=== PATIENT | male | born 1965 | race Hispanic/Latino ===

== ENCOUNTER 2024-07-20 22:22 | Emergency (ER) | payer SELFPAY ==
[2024-07-20] MEDS ORDERED: DIAZEPAM 10 MG/2 ML INJ SYRINGE ONE (23:20)
[2024-07-20] MEDS ORDERED: KETOROLAC 30 MG/ML INJ ONE (23:21)
[2024-07-20] MEDS ORDERED: ACETAMINOPHEN 325 MG TABLET ONE (23:21)
[2024-07-20] MEDS ORDERED: HYDROCODONE/APAP 7.5/325 MG TAB ONE (23:22)
--- NOTE | 2024-07-21 00:33 | ER ---
Nurse's Notes [facility] Name: Fredo Sylvester Age: 59 yrs Sex: Male : 1965 Arrival Date: 07/20/2024 Time: 22:22 Bed 13 Private MD: Diagnosis: Pain in left shoulder Presentation: 07/20 22:50 Chief complaint: Patient states: Patient presents in the ED c/o left shoulder pain ss since yesterday. Patient states, " i slept on it from the night before, and when i woke up, it was hurting". Coronavirus screen: At this time, the client does not indicate any symptoms associated with coronavirus-19. Ebola Screen: No symptoms or risks identified at this time. Initial Sepsis Screen: Does the patient meet any 2 criteria? No. Patient's initial sepsis screen is negative. Does the patient have a suspected source of infection? No. Patient's initial sepsis screen is negative. Risk Assessment: Do you want to hurt yourself or someone else? Patient reports no desire to harm self or others. Onset of symptoms was July 19, 2024. 22:50 Method Of Arrival: Ambulatory ss 22:50 Acuity: LAURA 4 ss Historical: - Allergies: 22:53 No Known Allergies; ss - Immunization history:: Adult Immunizations unknown. - Infectious Disease History:: Denies. - Social history:: Smoking status: Patient reports the use of cigarette tobacco products, smokes one pack cigarettes per day. Screenin:00 [facility] ED Fall Risk Assessment (Adult) History of falling in the last 3 months, kj2 including since admission No falls in past 3 months (0 pts) Confusion or Disorientation No (0 pts) Intoxicated or Sedated No (0 pts) Impaired Gait No (0 pts) Mobility Assist Device Used No (0 pt) Altered Elimination No (0 pt) Score/Fall Risk Level 0 - 2 = Low Risk Maintained a safe environment, Hourly rounding (assess needs \\T\\ fall precautionary measures) done. Abuse screen: Denies threats or abuse. Denies injuries from another. Nutritional screening: No deficits noted. Tuberculosis screening: No symptoms or risk factors identified. Assessment: 22:59 General: Appears in no apparent distress. uncomfortable, Behavior is calm, cooperative. kj2 Pain: Complains of pain in left shoulder Pain currently is 8 out of 10 on a pain scale. Neuro: Level of Consciousness is awake, alert, obeys commands, Oriented to person, place, time, situation. Cardiovascular: Patient's skin is warm and dry. Respiratory: Airway is patent. GI: No signs and/or symptoms were reported involving the gastrointestinal system. : No signs and/or symptoms were reported regarding the genitourinary system. 07/21 00:17 Reassessment: Patient appears in no apparent distress at this time. Patient and/or kj2 family updated on plan of care and expected duration. Pain level reassessed. Patient is alert, oriented x 3, equal unlabored respirations, skin warm/dry/pink. Vital Signs: 07/20 22:50 BP 153 / 82; Pulse 85; Resp 17; Temp 98.4; Pulse Ox 96% ; Weight 81.65 kg; ss 23:01 BP 161 / 83; Pulse 83; Resp 18; Temp 98.2; Pulse Ox 95% ; kj2 07/21 00:16 BP 149 / 82; Pulse 77; Resp 18; Pulse Ox 93% on R/A; af3 ED Course: 07/20 22:27 Patient arrived in ED. am2 22:32 Aron Fischer PA is PHCP. cp 22:32 Katie Narayanan MD is Attending Physician. cp 22:50 Patient has correct armband on for positive identification. Bed in low position. Call kj2 light in reach. Adult w/ patient. Provided Education on: call light. 22:53 Triage completed. ss 22:58 Sonja Gilmore, RN is Primary Nurse. kj2 23:00 Arm band placed on Patient placed in an exam room, on a stretcher. kj2 23:46 XRAY Shoulder LEFT 2 view In Process Unspecified. EDMS 07/21 00:32 Frank Espitia MD is Referral Physician. cp 00:50 No provider procedures requiring assistance completed. Patient did not have IV access kj2 during this emergency room visit. 00:51 Sling applied to left arm. kmf Administered Medications: 07/20 23:37 Drug: Hydrocodone-Acetaminophen PO (7.5 mg-325 mg) 1 tabs PO once; RASS on ADMIN: kj2 Combtv4, Very Agttd3, Agttd2, Rstlss1, AlertClm0, Drwsy-1, Lt Sdtn-2, Mod Sdtn-3, Dp Sdtn-4, UnArsble-5 Route: PO; 07/21 00:17 Follow up: Response: No adverse reaction kj2 07/20 23:37 Drug: Acetaminophen PO 650 mg PO once Route: PO; kj2 07/21 00:16 Follow up: Response: No adverse reaction kj2 07/20 23:37 Drug: Diazepam IM 5 mg IM once Route: IM; Site: right deltoid; kj2 07/21 00:16 Follow up: Response: No adverse reaction kj2 07/20 23:38 Drug: Ketorolac IM 30 mg IM once Route: IM; Site: left deltoid; kj2 07/21 00:17 Follow up: Response: No adverse reaction kj2 Medication: 00:18 VIS not applicable for this client. kj2 Outcome: 00:32 Discharge ordered by MD. valenzuela 01:07 Patient left the ED. kj2 Signatures: Dispatcher [employer] EDMS Mary Herndon RN RN Aron Mcgregor PA PA cp Moreno, Amanda am2 Forrester, Kelsey Maroul Sonja Ramirez RN RN kj2 Chioma Perera3
--- NOTE | 2024-07-21 00:33 | EDPHYS ---
Physician Documentation [facility] Name: Fredo Sylvester Age: 59 yrs Sex: Male : 1965 Arrival Date: 07/20/2024 Time: 22: Bed 13 Private MD: ED Physician Katie Narayanan HPI: 07/20 23:15 This 59 yrs old Male presents to ER via Ambulatory with complaints of Shoulder cp Pain. 23:15 The patient or guardian complains of pain, that is acute. left shoulder. Onset: The cp symptoms/episode began/occurred yesterday, upon awakening. 23:15 Associated signs and symptoms: Pertinent positives: radiating pain to left side of cp neck. patient denies chest pain. denies history of injury to left shoulder, Pertinent negatives: abdominal pain, chest pain, Numbness in left hand and left arm shortness of breath, tingling, Weakness in left hand and left arm. 23:15 Treatment prior to arrival includes: no previous treatment. cp Historical: - Allergies: 22:53 No Known Allergies; ss - Immunization history:: Adult Immunizations unknown. - Infectious Disease History:: Denies. - Social history:: Smoking status: Patient reports the use of cigarette tobacco products, smokes one pack cigarettes per day. ROS: 23:20 MS/extremity: Positive for decreased range of motion, pain, of the left shoulder, cp Negative for injury or acute deformity, paresthesias, 23:20 Constitutional: Negative for body aches, chills, fever, poor PO intake, cp 23:20 Eyes: Negative for injury, pain, redness, and discharge, cp 23:20 Cardiovascular: Negative for chest pain, edema, palpitations, 23:20 Respiratory: Negative for cough, shortness of breath, wheezing, 23:20 Abdomen/GI: Negative for abdominal pain, 23:20 Back: Negative for pain at rest, pain with movement, 23:20 Neuro: Negative for altered mental status, headache, numbness, weakness, 23:20 All other systems are negative, Exam: 23:25 Constitutional: The patient appears in no acute distress, alert, awake, cp non-diaphoretic, non-toxic, well developed, well nourished, uncomfortable, 23:25 Head/Face: Normocephalic, atraumatic. cp 23:25 Eyes: Periorbital structures: appear normal, Conjunctiva: normal, no exudate, no injection, Sclera: no appreciated abnormality, Lids and lashes: appear normal, bilaterally, 23:25 ENT: External ear(s): are unremarkable, Nose: is normal, Mouth: Lips: moist, Oral mucosa: moist, Posterior pharynx: Airway: no evidence of obstruction, patent, 23:25 Neck: C-spine: vertebral tenderness, is not appreciated, crepitus, is not appreciated, tenderness to palpation left lateral neck and left upper back, 23:25 Chest/axilla: Inspection: normal, 23:25 Cardiovascular: Rate: normal, Rhythm: regular, JVD: is not appreciated, 23:25 Respiratory: the patient does not display signs of respiratory distress, Respirations: normal, no use of accessory muscles, no retractions, labored breathing, is not present, Breath sounds: are clear throughout, no decreased breath sounds, no stridor, no wheezing, 23:25 Abdomen/GI: Inspection: abdomen appears normal, 23:25 Back: pain, that is moderate, of the left trapezius and left scapular area, 23:25 Musculoskeletal/extremity: Extremities: noted in the left shoulder: decreased ROM, pain, There is no evidence of deformity, ROM: limited passive range of motion due to pain, in the left shoulder, Pulses: noted to be 2+ in the left radial artery, the left hand and left arm 23:25 Neuro: Orientation: to person, place \T\ time. Mentation: is normal, Vital Signs: 22:50 BP 153 / 82; Pulse 85; Resp 17; Temp 98.4; Pulse Ox 96% ; Weight 81.65 kg; ss 23:01 BP 161 / 83; Pulse 83; Resp 18; Temp 98.2; Pulse Ox 95% ; kj2 07/21 00:16 BP 149 / 82; Pulse 77; Resp 18; Pulse Ox 93% on R/A; af3 MDM: 11 22:57 Medical Screening Exam initiated cp 23:15 Differential diagnosis: Anterior dislocation with fracture, Anterior dislocation cp without fracture, Posterior dislocation with fracture, Posterior dislocation without fracture, humeral head fracture, tendonitis, muscle strain. 07/21 00:32 Data reviewed: vital signs, nurses notes, radiologic studies, plain films. cp 00:32 I considered the following discharge prescriptions or medication management in the cp emergency department Medications were administered in the Emergency Department. See MAR. Independent interpretation of the following test(s) in the Emergency Department X-Ray: My interpretation is images of left shoulder negative for fracture. Counseling: I had a detailed discussion with the patient and/or guardian regarding the historical points, exam findings, and any diagnostic results supporting the discharge/admit diagnosis, radiology results, the need for outpatient follow up, a orthopedic surgeon, to return to the emergency department if symptoms worsen or persist or if there are any questions or concerns that arise at home. Response to treatment: the patient's symptoms have markedly improved after treatment, and as a result, I will discharge patient. 07/20 23:09 Order name: XRAY Shoulder LEFT 2 view cp 07/21 00:32 Order name: Sling; Complete Time: 00:58 cp Administered Medications: 07/20 23:37 Drug: Hydrocodone-Acetaminophen PO (7.5 mg-325 mg) 1 tabs PO once; RASS on ADMIN: kj2 Combtv4, Very Agttd3, Agttd2, Rstlss1, AlertClm0, Drwsy-1, Lt Sdtn-2, Mod Sdtn-3, Dp Sdtn-4, UnArsble-5 Route: PO; 07/21 00:17 Follow up: Response: No adverse reaction kj2 07/20 23:37 Drug: Acetaminophen PO 650 mg PO once Route: PO; kj2 07/21 00:16 Follow up: Response: No adverse reaction kj2 07/20 23:37 Drug: Diazepam IM 5 mg IM once Route: IM; Site: right deltoid; kj2 07/21 00:16 Follow up: Response: No adverse reaction kj2 07/20 23:38 Drug: Ketorolac IM 30 mg IM once Route: IM; Site: left deltoid; kj2 07/21 00:17 Follow up: Response: No adverse reaction kj2 Disposition Summary: 07/21/24 00:32 Discharge Ordered Notes: Location: Home cp Problem: new cp Symptoms: have improved cp Condition: Stable cp Diagnosis - Pain in left shoulder cp Followup: cp - With: Frank Espitia MD - When: 1 week - Reason: Recheck today's complaints Discharge Instructions: - Discharge Summary Sheet cp - Shoulder Pain cp - Shoulder Range of Motion Exercises cp Forms: - Medication Reconciliation Form cp - Antibiotic Education cp - Prescription Opioid Use cp - Patient Portal Instructions cp - Leadership Thank You Letter cp Prescriptions: - Diclofenac Sodium 75 mg Oral tablet, delayed release (enteric coated) - take 1 tablet ORAL route 2 times per day; 20 tablet; Refills: 0, Product cp Selection Permitted - Medrol (Jun) 4 mg Oral Tablets, Dose Pack - take 1 tablet ORAL route as directed - follow package instructions; 1 packet; cp Refills: 0, Product Selection Permitted - methocarbamol 750 mg Oral tablet - take 1 tablet ORAL route 3-4 times daily; 30 tablet; Refills: 0, Product cp Selection Permitted Signatures: Dispatcher [employer] Mary Hendrickson RN RN ss Aron Fischer PA PA Sonja Gallegos RN RN kj2
[2024-07-21 05:44] VITALS: TEMP 98.2
[2024-07-21 05:45] VITALS: BP 149/82; O2SAT 93
--- NOTE | 2024-07-21 06:22 | RAD REPORT ---
CLINICAL HISTORY: PAIN. COMPARISON: None. TECHNIQUE: Three views of the left shoulder were obtained: AP internal and external rotation, and tra nsscapular Y radiographs. FINDINGS: No acute fracture identified. Glenohumeral joint alignment is maintained. No acromioclavicular joint widening. Mild acromioclavicular and glenohumeral osteoarthrosis. IMPRESSION: No acute osseous abnormality identified. Electronically signed by: Martha Guevara MD 07/21/2024 12:03 AM [facility] Due to temporary technical issues with the PACS/[employer] reporting system, reports are being leona d by the in-house radiologist without review as a courtesy to ensure prompt reporting. The interpreting radiologist is fully responsible for the content of the report. Transcribed Date/Time: 07/21/2024 6:22 AM
== END 2024-07-21 01:07 | disposition home or self-care (01) ==
LOC: ER 22:22
DX: M25.512 Pain in left shoulder (principal); F17.210 Nicotine dependence, cigarettes, uncomplicated
CPT/HCPCS: J3360